=== PATIENT | male | born 1985 | race Caucasian/White ===

== ENCOUNTER 2023-09-25 12:18 | Day surgery (SDC) | payer BC ==
[2023-09-24 09:49] VITALS: BMI 26.9
[2023-09-25] MEDS ORDERED: MIDAZOLAM HCL 2 MG/2 ML SINGLE DOSE VIAL ONE ×2 (13:32→14:41)
[2023-09-25] MEDS ORDERED: BUPIVACAINE HCL/PF 0.5% (5 MG/ML) 30 ML VIAL IJ ONE (13:32)
[2023-09-25] MEDS ORDERED: ACETAMINOPHEN INJECTION 100 ML IVPB ONE (13:32)
[2023-09-25] MEDS ORDERED: BUPIVACAINE HCL/PF 0.5% (5MG/ML) 10 ML VIAL ONE (13:35)
[2023-09-25] MEDS ORDERED: PROPOFOL 20 ML ONE ×2 (14:09→14:28)
[2023-09-25] MEDS ORDERED: ceFAZolin SODIUM 1 GM VIAL ONE ×2 (14:24)
[2023-09-25] MEDS ORDERED: DEXAMETHASONE SOD PHOSPHATE 4 MG/1 ML VIAL ONE (14:36)
[2023-09-25] MEDS ORDERED: ONDANSETRON 4 MG/2 ML VIAL ONE (14:36)
[2023-09-25] MEDS ORDERED: GLYCOPYRROLATE 0.2 MG/1 ML VIAL ONE (14:36)
[2023-09-25] MEDS ORDERED: KETOROLAC TROMETHAMINE 30 MG/1 ML VIAL ONE (14:36)
[2023-09-25] MEDS ORDERED: GENTAMICIN SO4 80 MG/2 ML VIAL ONE (15:19)
[2023-09-25] MEDS ORDERED: oxyCODONE HCL 5 MG TABLET PO PRN (15:32)
[2023-09-25] MEDS ORDERED: ONDANSETRON 4 MG/2 ML VIAL IVPUSH PRN (15:32)
[2023-09-25] MEDS ORDERED: ACETAMINOPHEN 325 MG TABLET (FP) PO PRN (15:32)
[2023-09-25] MEDS ORDERED: LACTATED RINGERS SOLUTION 1,000 ML IV SCH (15:45)
[2023-09-25 16:16] VITALS: RESP 16; TEMP 97.8
[2023-09-25 16:31] VITALS: BP 128/74; PULSE 80
== END 2023-09-25 16:35 | disposition home or self-care (01) ==
LOC: FASU 12:18
PROVIDERS: ATTEND Orthopaedic Surgery Hand Surgery
PROC: 0LN60ZZ Release Left Lower Arm and Wrist Tendon, Open Approach (ICD-10-PCS; 2023-09-25)
PROC: 0PSNXZZ Reposition Left Carpal, External Approach (ICD-10-PCS; 2023-09-25)
PROC: 0PSJ04Z Reposition Left Radius with Internal Fixation Device, Open Approach (ICD-10-PCS; principal; 2023-09-25 14:25)
DX: S52.572A Other intraarticular fracture of lower end of left radius, initial encounter for closed fracture (principal); S62.012A Displaced fracture of distal pole of navicular [scaphoid] bone of left wrist, initial encounter for closed fracture; X58.XXXA Exposure to other specified factors, initial encounter; Y93.9 Activity, unspecified; Y92.9 Unspecified place or not applicable
CPT/HCPCS: 25290; 25609; 25622; C1713; 73110-TC-LT-FY; 73130-TC-LT-FY; 94760